=== PATIENT | female | born 1980 | race Two or more races ===

== ENCOUNTER 2022-10-17 16:08 | Emergency (ER) | payer MEDICAID, OTHER ==
[~2022-10-17] VITALS: Ht 162.6 cm; Wt 84.0 kg
[2022-10-17] MEDS ORDERED: IOHEXOL 350 MG/ML 100ML IJ ONE (20:05)
[2022-10-17] MEDS ORDERED: HYDROcodone-ACET 5/325MG TAB PO ONE (22:00)
[2022-10-17] MEDS ORDERED: KETOROLAC TROMETH 60MG/2ML VIAL IM ONE (22:00)
[2022-10-17] MEDS ORDERED: DexAMETHasone SOD PHOS 10MG/1ML VIAL INJ IM ONE (22:00)
[2022-10-17] MEDS ORDERED: IBU600T PO (22:13)
[2022-10-17] MEDS ORDERED: CYCL-839 PO (22:13)
[2022-10-17 23:40] VITALS: BP 122/79
== END 2022-10-17 23:40 | disposition home or self-care (01) ==
LOC: ER 16:08 → EDBD 16:08 → ER 23:40
DX: S13.9XXA Sprain of joints and ligaments of unspecified parts of neck, initial encounter (principal); S43.402A Unspecified sprain of left shoulder joint, initial encounter; S33.5XXA Sprain of ligaments of lumbar spine, initial encounter; S20.212A Contusion of left front wall of thorax, initial encounter; S00.83XA Contusion of other part of head, initial encounter; M41.9 Scoliosis, unspecified; K76.0 Fatty (change of) liver, not elsewhere classified; V49.9XXA Car occupant (driver) (passenger) injured in unspecified traffic accident, initial encounter; Y93.89 Activity, other specified; Y92.89 Other specified places as the place of occurrence of the external cause; Y99.8 Other external cause status
CPT/HCPCS: 70450; 71111; 71250; 72100; 72125; 73030; 74176; 96372; 99285; J1100; J1885; Q9967